=== PATIENT | female | born 1985 | race African-American/Black ===

== ENCOUNTER 2016-10-10 19:46 | Emergency (ER) | payer OTHER ==
[2016-10-10 20:28] VITALS: BP 128/98
--- NOTE | 2016-10-10 20:57 | ER Document Report ---
ED General - General Chief Complaint: Fall Injury Stated Complaint: FALL/RIGHT HIP PAIN,ABDOMINAL PAIN Notes: Patient is a 30-year-old female at 5 weeks by LMP who presents after having a mechanical fall today down one step. She landed directly on her right hip and has had a dull, constant, aching pain to the area since that time. Nothing improves the pain. States walking mildly increase of the pain although she notes she is able to walk without difficulty. She did not sustain any direct trauma to her abdomen. She notes that she's intermittent had some mild abdominal cramping but states "I think this is more my head". A nice any vaginal bleeding. She has not seen her primary care doctor regarding today's concerns. She denies any head or neck trauma. Denies any injury to it any additional part of her body. TRAVEL OUTSIDE OF THE [place] IN LAST 30 DAYS: No - Related Data Allergies/Adverse Reactions: No Known Allergies Allergy (Unverified 10/10/16 20:31) Past Medical History - General Information source: Patient - Social History Smoking Status: Never Smoker Frequency of alcohol use: None Drug Abuse: None Lives with: Spouse/Significant other Family History: Reviewed & Not Pertinent Patient has suicidal ideation: No Patient has homicidal ideation: No Renal/ Medical History: Denies: Hx Peritoneal Dialysis Review of Systems - Review of Systems Notes: Constitutional: Negative for fever. Eyes: Negative for visual changes. ENT: Negative for facial injury Cardiovascular: Negative for chest injury. Respiratory: Negative for shortness of breath. Gastrointestinal: Negative for abdominal injury. Genitourinary: Negative for genital injury Musculoskeletal: Positive for right hip pain Skin: Negative for laceration/abrasions. Neurological: Negative for head injury. Physical Exam - Vital signs Vitals: Temp Pulse Resp BP Pulse Ox 98.6 F 76 20 128/98 H 100 10/10/16 20:27 10/10/16 20:27 10/10/16 20:27 10/10/16 20:27 10/10/16 20:27 Interpretation: Normal Notes: PHYSICAL EXAMINATION: GENERAL: Well-appearing, well-nourished and in no acute distress. HEAD: Atraumatic, normocephalic. EYES: Pupils equal round and reactive to light, extraocular movements intact, sclera anicteric, conjunctiva are normal. ENT: nares patent, oropharynx clear without exudates. Moist mucous membranes. NECK: Normal range of motion, supple without lymphadenopathy LUNGS: Breath sounds clear to auscultation bilaterally and equal. No wheezes rales or rhonchi. HEART: Regular rate and rhythm without murmurs ABDOMEN: Soft, nontender, normoactive bowel sounds. No guarding, no rebound. No masses appreciated. EXTREMITIES: Normal range of motion, no pitting or edema. No cyanosis. NEUROLOGICAL: No focal neurological deficits. Moves all extremities spontaneously and on command. PSYCH: Normal mood, normal affect. SKIN: Warm, Dry, normal turgor, mild bruising over the right hip Course - Re-evaluation Re-evalutation: 10/10/16 20:52 Patient presents after falling trochanter right hip earlier today after missing a stair. She has been able to ambulate and has full range of motion of the right hip. Her primary concern is that she is 5 weeks and is worried for the status of the fetus. She has not had any lower abdominal pain or cramping. She has no focal abdominal tenderness on exam. She has not had any vaginal bleeding. She is Rh+. Discussed with the patient at this time no indication for further labs or imaging.At this time will discharge with return precautions and follow-up recommendations. Verbal discharge instructions given a the bedside and opportunity for questions given. Medication warnings reviewed. Patient is in agreement with this plan and has verbalized understanding of return precautions and the need for primary care follow-up in the next 24-72 hours. - Vital Signs Vital signs: Temp Pulse Resp BP Pulse Ox 98.6 F 76 20 128/98 H 100 10/10/16 20:27 10/10/16 20:27 10/10/16 20:27 10/10/16 20:27 10/10/16 20:27 Discharge - Discharge Clinical Impression: Right hip pain Fall Qualifiers: Encounter type: initial encounter Qualified Code(s): W19.XXXA - Unspecified fall, initial encounter Condition: Good Disposition: HOME, SELF-CARE Additional Instructions: You take Tylenol as needed for right hip pain. He can also apply local heat or ice to the area. Please return if you develop bleeding through more than 2 pads an hour for more than 2 hours, severe lower abdominal cramping or any other symptoms that are worrisome to you. This fall will not likely affect her given that you hit your her right hip and this is and this is far away from your uterus where your baby is located.
== END 2016-10-10 21:13 | disposition home or self-care (01) ==
LOC: ER 19:46
DX: O9A.211 Injury, poisoning and certain other consequences of external causes complicating pregnancy, first trimester (principal); M25.551 Pain in right hip; R10.9 Unspecified abdominal pain; W10.9XXA Fall (on) (from) unspecified stairs and steps, initial encounter; Z3A.01 Less than 8 weeks gestation of pregnancy
CPT/HCPCS: 99283